=== PATIENT | female | born 1965 | race Caucasian/White ===

== ENCOUNTER 2018-03-29 23:33 | Emergency (ER) | payer SELFPAY ==
--- NOTE | 2018-03-29 23:56 | ED ---
GI/ HPI - HPI Summary HPI Summary: patient to ED tonight no BM from March 21--also feels like her bladder is too full ---has not voided tonight--did take a laxative with no results, no fevers, some nausea no vomiting ---noted a smear of blood when she wiped after trying to have BM this evening - History of Current Complaint Chief Complaint: EDGeneral Time Seen by Provider: 03/29/18 23:45 Stated Complaint: BLOODY STOOL Hx Obtained From: Patient Hx Last Menstrual Period: 1 week ago Onset/Duration: Started Days Ago - Last BM 8 days ago Timing: Constant Severity: Moderate Current Severity: Moderate Pain Intensity: 7 Location of Pain: Diffuse Pain Characteristics: Cramping Associated Signs and Symptoms: Positive: Nausea, Rectal Pain, Constipation Aggravating Factor(s): Nothing Alleviating Factor(s): Nothing - Allergy/Home Medications Allergies/Adverse Reactions: Allergies Allergy/AdvReac Type Severity Reaction Status Date / Time No Known Allergies Allergy Verified 03/29/18 23:41 PMH/Surg Hx/FS Hx/Imm Hx Previously Healthy: Yes Endocrine/Hematology History: Denies: Hx Diabetes, Hx Systemic Lupus Erythematosus, Hx Thyroid Disease Cardiovascular History: Reports: Hx Hypercholesterolemia Denies: Hx Hypertension, Hx Pacemaker/ICD, Hx Peripheral Vascular Disease Respiratory History: Reports: Hx Asthma Denies: Hx Chronic Obstructive Pulmonary Disease (COPD) GI History: Denies: Hx Ulcer History: Denies: Hx Dialysis, Hx Renal Disease Musculoskeletal History: Reports: Hx Arthritis Denies: Hx Rheumatoid Arthritis, Hx Osteoporosis Sensory History: Denies: Hx Cataracts, Hx Contacts or Glasses, Hx Glaucoma, Hx Hearing Aid Opthamlomology History: Denies: Hx Cataracts, Hx Contacts or Glasses, Hx Glaucoma Neurological History: Denies: Hx Headaches, Hx Seizures, Hx Transient Ischemic Attacks (TIA) Psychiatric History: Reports: Hx Panic Disorder - HX OF ANXIETY Denies: Hx Anxiety, Hx Depression - Cancer History Hx Chemotherapy: No Infectious Disease History: No Infectious Disease History: Denies: Hx Clostridium Difficile, Hx Hepatitis, Hx Human Immunodeficiency Virus (HIV), Hx of Known/Suspected MRSA, Hx Shingles, Hx Tuberculosis, Hx Known/ Suspected VRE, Hx Known/Suspected VRSA, History Other Infectious Disease, Traveled Outside the [place] in Last 30 Days - Family History Known Family History: Positive: Cardiac Disease - Social History Occupation: Employed Full-time Lives: Alone Alcohol Use: None 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 Substance Use Type: Reports: None Hx Tobacco Use: No Smoking Status (MU): Never Smoked Tobacco Review of Systems Constitutional: Negative Eyes: Negative ENT: Negative Cardiovascular: Negative Respiratory: Negative Positive: Abdominal Pain, Nausea, Other - constipation, Genitourinary: Negative Positive: pain, other - HNV Musculoskeletal: Negative Skin: Negative Neurological: Negative Psychological: Normal All Other Systems Reviewed And Are Negative: Yes Physical Exam Triage Information Reviewed: Yes Vital Signs On Initial Exam: Initial Vitals Temp Pulse Resp BP Pulse Ox 98.4 F 80 16 113/62 99 03/29/18 23:35 03/29/18 23:35 03/29/18 23:35 03/29/18 23:35 03/29/18 23:35 Vital Signs Reviewed: Yes Appearance: Positive: Well-Appearing, No Pain Distress, Well-Nourished Skin: Positive: Warm, Skin Color Reflects Adequate Perfusion, Dry Eyes: Positive: Normal, EOMI, ANSHUL ENT: Positive: Normal ENT inspection, Hearing grossly normal, Pharynx normal. Negative: Nasal congestion, Trismus, Muffled voice, Hoarse voice Neck: Positive: Supple, Nontender, No Lymphadenopathy Respiratory/Lung Sounds: Positive: Clear to Auscultation, Breath Sounds Present Cardiovascular: Positive: Normal, RRR, Pulses are Symmetrical in both Upper and Lower Extremities Abdomen Description: Positive: Distended, Other: - >999 with bladder scan. Negative: CVA Tenderness (L) Bowel Sounds: Positive: Present Musculoskeletal: Positive: Normal, Strength/ROM Intact Neurological: Positive: Normal, Sensory/Motor Intact, Alert, Oriented to Person Place, Time Psychiatric: Positive: Normal AVPU Assessment: Alert - [place] Coma Scale Best Eye Response: 4 - Spontaneous Best Motor Response: 6 - Obeys Commands Best Verbal Response: 5 - Oriented Coma Scale Total: 15 Diagnostics - Vital Signs Vital Signs Temp Pulse Resp BP Pulse Ox 03/29/18 23:35 98.4 F 80 16 113/62 99 - Laboratory Lab Statement: Any lab studies that have been ordered have been reviewed, and results considered in the medical decision making process. Re-Evaluation - Re-Evaluation First Eval Change: Improved - f/c placed 1400cc urine out put---feeling much better Second Eval Change: Unchanged - broke stool up digitally-apporox 400 cc of soap/water emena given patient holding in water well ambulatory to BR Third Eval Change: Improved - large stool---feels much better---f/c removed GIGU Course/Dx - Course Assessment/Plan: increase fluids, miralx, follow ith pcp, high fiber diet - Diagnoses Provider Diagnoses: Acute urinary retention, Constipation Discharge - Sign-Out/Discharge Documenting (check all that apply): Patient Departure - Discharge Plan Condition: Stable Disposition: HOME Patient Education Materials: Polyethylene Glycol 3350 (By mouth), High Fiber Diet (ED), Constipation (DC), Acute Urinary Retention in Women (ED) Referrals: Faisal Granados MD [Primary Care Provider] - 2 Days - Billing Disposition and Condition Condition: STABLE Disposition: Home
[2018-03-30] MEDS ORDERED: Sodium Phosphate ADULT ENEMA* 118 ml bottle PR ONE (00:06)
[2018-03-30] MEDS ORDERED: Lidocaine 4% GEL* 10 GM TUBE TOPICAL ONE (00:55)
[2018-03-30] MEDS ORDERED: Lidocaine 2% JELLY* 6 ML JELLY TOPICAL ONE (00:57)
[2018-03-30] MEDS ORDERED: LORazepam TAB(*) 1 MG PO ONE (01:47)
[2018-03-30 02:46] VITALS: BP 105/58
== END 2018-03-30 02:46 | disposition home or self-care (01) ==
LOC: ED 23:33
DX: K59.00 Constipation, unspecified (principal); R33.9 Retention of urine, unspecified; R11.0 Nausea; E78.00 Pure hypercholesterolemia, unspecified; J45.909 Unspecified asthma, uncomplicated; F41.0 Panic disorder [episodic paroxysmal anxiety]; Z82.49 Family history of ischemic heart disease and other diseases of the circulatory system
CPT/HCPCS: 99283